=== PATIENT | female | born 1995 | race Caucasian/White ===

== ENCOUNTER 2017-10-06 15:44 | Emergency (ER) | payer BC ==
[~2017-10-06] VITALS: Ht 162.6 cm; Wt 59.9 kg
[2017-10-06 15:47] VITALS: TEMP 36.9; Ht 162.6 cm; Wt 59.9 kg
[2017-10-06] MEDS ORDERED: METOCLOPRAMIDE HCL INJ 5 MG/ML 2 ML VIAL IV STA (15:54)
[2017-10-06] MEDS ORDERED: SODIUM CHLORIDE 0.9% 1000ML 2,000 ML IV STA (15:54)
[2017-10-06] MEDS ORDERED: DiphenhydrAMINE HCL 50 MG/ML VIAL IV STA (15:54)
--- NOTE | 2017-10-06 16:09 | EMERGENCY ROOM VISIT NOTE ---
History Report prepared by Iris: Kalia Younger Under the Supervision of: Dr. Raza Michel M.D. First contact with patient: 15:51 Chief Complaint: HEADACHE Stated Complaint: HEADACHE, SWEATING, COLD, NO FEVER-REFERRED History of Present Illness The patient is a 21 year old female who presents to the Emergency Room with complaints of a constant posterior headache that started yesterday around 1400. The patient states that it had a gradual onset, has spread to the front, and it is the worst headache of her life. She additionally notes that she was sweating last night while sleeping, and she has been having some chills and dizziness. The patient denies any neck pain, blurry vision, and ear pain. The patient reports that she took Tylenol for her headache today, and she does not take any daily medications. She does not have a history of migraines, and she has not had any recent tick bites. The patient notes that she drinks alcohol on the weekends, and she does not use any drugs. She denies any chance of , and she is supposed to get her period tomorrow. She states that she does not usually get headaches before getting her menstrual cycle. Source of History: patient Onset: yesterday around 1400 Position: head Quality: ache Timing: constant Associated Symptoms: + chills, + diaphoresis Note: Associated symptoms: Dizziness Review of Systems See HPI for pertinent positives and negatives. A total of ten systems were reviewed and were otherwise negative. Past Medical & Surgical Surgical Problems: (1) [place] teeth extracted Family History Patient reports no known family medical history. Social History Smoking Status: Never Smoker Alcohol Use: occasionally Marital Status: single Housing Status: lives with roommate Occupation Status: [employer] student Current/Historical Medications Scheduled Acetaminophen (Tylenol), 2 TABS PO Q6H Control Pills ( Control Pills), 1 TAB PO DAILY Scheduled PRN Ibuprofen Tab (Motrin), 800 MG PO Q8H PRN for Pain Allergies Coded Allergies: No Known Allergies (Unverified , 10/06/17) Physical Exam Vital Signs Date Time Temp Pulse Resp B/P (MAP) Pulse Ox O2 Delivery O2 Flow Rate FiO2 10/06/17 21:35 73 147/70 99 10/06/17 21:14 99 18 130/80 99 Room Air 10/06/17 21:11 11/15/17 21:05 70 100 10/06/17 21:00 73 18 99 10/06/17 20:45 72 10/06/17 20:35 139/84 10/06/17 20:31 145/91 10/06/17 20:15 60 99 10/06/17 20:00 66 131/85 100 10/06/17 19:45 64 100 10/06/17 19:30 107/72 10/06/17 19:21 15 127/77 10/06/17 17:41 79 18 134/85 99 Room Air 10/06/17 15:47 36.9 85 18 127/86 93 Room Air Physical Exam GENERAL: Awake, alert, uncomfortable-appearing, in no distress HENT: Normocephalic, atraumatic. Oropharynx unremarkable. EYES: Normal conjunctiva. Sclera non-icteric. NECK: Supple. No nuchal rigidity. FROM. No JVD. RESPIRATORY: Clear to auscultation. CARDIAC: Regular rate, normal rhythm. Extremities warm and well perfused. Pulses equal. ABDOMEN: Soft, non-distended. No tenderness to palpation. No rebound or guarding. No masses. RECTAL: Deferred. MUSCULOSKELETAL: Chest examination reveals no tenderness. The back is symmetrical on inspection without obvious abnormality. There is no CVA tenderness to palpation. No joint edema. LOWER EXTREMITIES: Calves are equal size bilaterally and non-tender. No edema. No discoloration. NEURO: normal cerebellar function with [id number], alternating palms, heel- to-robison SKIN: No rash or jaundice noted. Medical Decision & Procedures ER Provider Diagnostic Interpretation: Radiology results as stated below per my review and radiologist interpretation: HEAD WITHOUT CONTRAST (CT) CLINICAL HISTORY: 21 years-old Female with Severe CHEN. Acute severe headache TECHNIQUE: Multiple axial CT images of the head were obtained without contrast. A dose lowering technique was utilized adhering to the principles of ALARA. CT DOSE: 537.48 mGy.cm COMPARISON: None. FINDINGS: No acute intracranial hemorrhage, midline shift, mass, large territorial ischemia or abnormal extra-axial collection. The calvarium is intact. The mastoid air cells, and middle ear cavities are clear. Minimal left maxillary sinus disease. Note is made of disconjugate gaze. IMPRESSION: No acute intracranial abnormality. The above report was generated using voice recognition software. It may contain grammatical, syntax or spelling errors. Electronically signed by: Tio Monsalve M.D. 10/06/2017 5:44 PM Dictated Date/Time: 10/06/2017 5:42 PM Laboratory Results 10/06/17 16:15 Red Blood Count 5.58, Mean Corpuscular Volume 85.7, Mean Corpuscular Hemoglobin 29.7, Mean Corpuscular Hemoglobin Concent 34.7, Mean Platelet Volume 10.7, Neutrophils (%) (Auto) 75.8, Lymphocytes (%) (Auto) 11.0, Monocytes (%) (Auto) 12.9, Eosinophils (%) (Auto) 0.1, Basophils (%) (Auto) 0.1, Neutrophils # (Auto ) 5.11, Lymphocytes # (Auto) 0.74, Monocytes # (Auto) 0.87, Eosinophils # (Auto ) 0.01, Basophils # (Auto) 0.01 10/06/17 16:15 Test 10/06/17 00:00 10/06/17 16:15 10/06/17 21:28 Urine Color DK YELLOW Urine Appearance CLEAR (CLEAR) Urine pH 5.0 (4.5-7.5) Urine Specific [place] 1.023 (1.000-1.030) Urine Protein NEG (NEG) Urine Glucose (UA) NEG (NEG) Urine Ketones TRACE (NEG) Urine Occult Blood TRACE (NEG) Urine Nitrite NEG (NEG) Urine Bilirubin NEG (NEG) Urine Urobilinogen NEG (NEG) Urine Leukocyte Esterase TRACE (NEG) Urine WBC (Auto) 1-5 /hpf (0-5) Urine RBC (Auto) 0-4 /hpf (0-4) Urine Hyaline Casts (Auto) 1-5 /lpf (0-5) Urine Epithelial Cells (Auto) 20-30 /lpf (0-5) Urine Bacteria (Auto) NEG (NEG) Urine Test NEG (NEG) White Blood Count 6.75 K/uL (4.8-10.8) Red Blood Count 5.58 M/uL (4.2-5.4) Hemoglobin 16.6 g/dL (12.0-16.0) Hematocrit 47.8 % (37-47) Mean Corpuscular Volume 85.7 fL (80-100) Mean Corpuscular Hemoglobin 29.7 pg (25-34) Mean Corpuscular Hemoglobin Concent 34.7 g/dl (32-36) Platelet Count 182 K/uL (130-400) Mean Platelet Volume 10.7 fL (7.4-10.4) Neutrophils (%) (Auto) 75.8 % Lymphocytes (%) (Auto) 11.0 % Monocytes (%) (Auto) 12.9 % Eosinophils (%) (Auto) 0.1 % Basophils (%) (Auto) 0.1 % Neutrophils # (Auto) 5.11 K/uL (1.4-6.5) Lymphocytes # (Auto) 0.74 K/uL (1.2-3.4) Monocytes # (Auto) 0.87 K/uL (0.11-0.59) Eosinophils # (Auto) 0.01 K/uL (0-0.5) Basophils # (Auto) 0.01 K/uL (0-0.2) RDW Standard Deviation 39.0 fL (36.4-46.3) RDW Coefficient of Variation 12.4 % (11.5-14.5) Immature Granulocyte % (Auto) 0.1 % Immature Granulocyte # (Auto) 0.01 K/uL (0.00-0.02) Anion Gap 10.0 mmol/L (3-11) Est Creatinine Clear Calc Drug Dose 67.4 ml/min Estimated GFR () 79.3 Estimated GFR (Non- 68.4 BUN/Creatinine Ratio 8.9 (10-20) Calcium Level 9.3 mg/dl (8.5-10.1) Lyme Disease IgG Antibody NEG (NEG) Influenza Type A (RT-PCR) Neg for Influ A (NEG) Influenza Type A Antigen Neg for Influ A (NEG) Influenza Type B Antigen Neg for Influ B (NEG) Influenza Type B (RT-PCR) Neg for Influ B (NEG) Laboratory results reviewed by me Medications Administered Medications (Trade) Dose Ordered Sig/Anselmo Route Start Time Stop Time Status Last Admin Dose Admin Sodium Chloride 2,000 ml @ 999 mls/hr Q2H1M STAT IV 10/06/17 15:54 10/06/17 17:54 DC 10/06/17 16:28 999 MLS/HR Metoclopramide HCl (Reglan Inj) 10 mg NOW STAT IV 10/06/17 15:54 10/06/17 16:05 DC 10/06/17 16:28 10 MG Diphenhydramine HCl (Benadryl Inj) 25 mg NOW STAT IV 10/06/17 15:54 10/06/17 16:05 DC 10/06/17 16:28 25 MG Sodium Chloride 1,000 ml @ 999 mls/hr Q1H1M STAT IV 10/06/17 19:08 10/06/17 20:08 DC 10/06/17 19:22 999 MLS/HR Dexamethasone Sodium Phosphate (Dexamethasone Inj Pf) 10 mg NOW ONCE IV 10/06/17 19:15 10/06/17 19:16 DC 10/06/17 19:23 10 MG ED Course 1551: The patient was evaluated in room B8. A complete history and physical exam was performed. 1554: Benadryl 25mg IV, Reglan 10mg IV, Sodium Chloride 2000 ml @ 999 mls/hr IV 8: Sodium Chloride 1000 ml @ 999 mls/hr IV 1914: Dexamethasone Sodium Phosphate 10mg IV 1916: I reevaluated the patient, and she is still looking uncomfortable, but she is gong to try to walk around, and if she is better, then she will go home. 2127: I reevaluated the patient. Discussed results and discharge instructions: She verbalized understanding and agreement. The patient is ready for discharge. Medical Decision I reviewed the patient's past medical history, medications, and the nursing notes as described above. Differential Diagnoses include: Tension headache, migraine headache, brain tumor , intracranial hemorrhage, subarachnoid hemorrhage, dehydration, and electrolyte abnormality. The patient is a 21-year-old woman previously healthy emergency department with prostate 24 hours of a severe posterior headache which began progressively yesterday per history of present illness. On arrival the patients uncomfortable but in no acute distress. She is afebrile with stable vital signs. Neuro intact. Given progressive nature of the patients headache is unlikely to be SAH/ICH. CT head with minimal left maxillary sinus disease but otherwise unremarkable. Labs otherwise unremarkable including negative flu. Lyme screen with equivocal IgM. Given the patient has maxillary sinus disease, which could explain patient' s sx and otherwise no history of tick bites or rashes, d/w patient option to wait for confirmatory western blot to inform whether to treat and patient was agreeable. Patient feeling improved after IVF, reglan, and dexamethasone. Given improvement and supple neck with evident source for sx, no indication for LP at this time. However, strict return instructions provided. Findings and plan for follow-up reviewed with patient. Patient agreeable and d/c'd per discharge instructions. Impression Primary Impression: Headache Additional Impression: Sinusitis, acute maxillary Scribe Attestation The scribe's documentation has been prepared under my direction and personally reviewed by me in its entirety. I confirm that the note above accurately reflects all work, treatment, procedures, and medical decision making performed by me. Departure Information Dispostion Home / Self-Care Prescriptions Ibuprofen Tab (MOTRIN) 800 Mg Tab 800 MG PO Q8H Y for Pain for 7 Days, #21 TAB Prov: Raza Michel M.D. 10/06/17 Referrals No Doctor, Assigned (PCP) Forms HOME CARE DOCUMENTATION FORM, IMPORTANT VISIT INFORMATION Patient Instructions ED Headache Sinus, ED Headache Tension, ED Sinusitis No Abx, My [facility] Additional Instructions Please follow up with S / your primary care physician in the next 1-3 days for re-evaluation. You likely have a tension headache related to a sinusitis. Otherwise, your exam, lab results, and CT scan did not show signs of an emergent condition at this time. Your Lyme screen was equivocal today and a confirmatory test will result in 1-2 days. You will only be call if the results are positive. Ibuprofen and acetaminophen for pain and fevers as needed. Drink plenty of fluids to ensure hydration. Return to the emergency department for worsening symptoms as described in the accompanying instructions. Problem Qualifiers
[2017-10-06 16:30] LABS: PREG INTERNAL NEGATIVE QC NEG CLEAR BACKGROUND; PREG INTERNAL POSITIVE QC POS CONTROL LINE
[2017-10-06] MEDS ORDERED: BCPILLS PO (16:30)
[2017-10-06] MEDS ORDERED: ACET-1256 PO (16:30)
[2017-10-06 16:31] LABS: URINE APPEARANCE CLEAR (CLEAR); URINE BILIRUBIN NEG (NEG); URINE COLOR DK YELLOW; URINE EPITHELIAL CELL AUTO 20-30 /lpf (0-5); URINE NITRITE NEG (NEG); URINE SPECIFIC GRAVITY 1.023 (1.000-1.030); UROBILINOGEN NEG (NEG); ZZUR CULT IF INDIC CLEAN CATCH NO
[2017-10-06 16:32] LABS: MANUAL MICROSCOPIC REQUIRED? NO; REVIEW REQ? NO
[2017-10-06 16:35] LABS: BASO % 0.1 %; BASO ABS # 0.01 K/uL (0-0.2); COMPLETE YES; EOS % 0.1 %; HEMATOCRIT 47.8 % (37-47); IG% 0.1 %; LYMPH ABS # 0.74 K/uL (1.2-3.4); MEAN CELL VOLUME 85.7 fL (80-100); MEAN CORPUSCULAR HEMOGLOBIN 29.7 pg (25-34); MEAN CORPUSCULAR HGB CONC 34.7 g/dl (32-36); MEAN PLATELET VOLUME 10.7 fL (7.4-10.4); MONO % 12.9 %; NEUT % 75.8 %; PLATELET COUNT 182 K/uL (130-400); RED BLOOD COUNT 5.58 M/uL (4.2-5.4); WHITE BLOOD COUNT 6.75 K/uL (4.8-10.8)
[2017-10-06 16:55] LABS: BUN/CREATININE RATIO 8.9 (10-20); CALCIUM 9.3 mg/dl (8.5-10.1); CREATININE 1.15 mg/dl (0.60-1.20); POTASSIUM 3.8 mmol/L (3.5-5.1)
[2017-10-06 17:45] LABS: LYME DISEASE AB IGG NEG (NEG)
--- NOTE | 2017-10-06 17:45 | DIAGNOSTIC IMAGING REPORT ---
HEAD WITHOUT CONTRAST (CT) CLINICAL HISTORY: 21 years-old Female with Severe CHEN. Acute severe headache TECHNIQUE: Multiple axial CT images of the head were obtained without contrast. A dose lowering technique was utilized adhering to the principles of ALARA. CT DOSE: 537.48 mGy.cm COMPARISON: None. FINDINGS: No acute intracranial hemorrhage, midline shift, mass, large territorial ischemia or abnormal extra-axial collection. The calvarium is intact. The mastoid air cells, and middle ear cavities are clear. Minimal left maxillary sinus disease. Note is made of disconjugate gaze. IMPRESSION: No acute intracranial abnormality. The above report was generated using voice recognition software. It may contain grammatical, syntax or spelling errors. Electronically signed by: Tio Monsalve M.D. 10/06/2017 5:44 PM Dictated Date/Time: 10/06/2017 5:42 PM
[2017-10-06 17:48] LABS: LYME DISEASE AB IGM EQUIVOCAL (NEG)
[2017-10-06] MEDS ORDERED: SODIUM CHLORIDE 0.9% 1000ML 1,000 ML IV STA (19:08)
[2017-10-06] MEDS ORDERED: DEXAMETHASONE **PF** INJ 10 MG/ML VIAL IV ONE (19:15)
[2017-10-06] MEDS ORDERED: IBUP-1451 PO (21:14)
[2017-10-06 21:35] VITALS: BP 147/70; PULSE 73; O2SAT 99
[2017-10-06 22:42] LABS: INFLUENZA A PCR Neg for Influ A (NEG); INFLUENZA B PCR Neg for Influ B (NEG)
== END 2017-10-06 21:37 | disposition home or self-care (01) ==
LOC: C.EDB 15:46
DX: R51 Headache (principal); J01.00 Acute maxillary sinusitis, unspecified; Z79.3 Long term (current) use of hormonal contraceptives